=== PATIENT | female | born 1995 | race Caucasian/White ===

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

== ENCOUNTER 2017-06-09 20:14 | Emergency (ER) | END 2017-06-09 22:47 | disposition home or self-care (01) ==

== ENCOUNTER 2017-09-27 18:53 | Emergency (ER) | END 2017-09-27 20:47 | disposition home or self-care (01) ==

== ENCOUNTER 2017-10-18 19:38 | Emergency (ER) | END 2017-10-18 22:09 | disposition home or self-care (01) ==

== ENCOUNTER 2017-12-22 22:56 | Emergency (ER) | END 2017-12-23 03:09 | disposition home or self-care (01) ==

== ENCOUNTER 2018-02-11 08:21 | Emergency (ER) | END 2018-02-11 09:30 | disposition home or self-care (01) ==

== ENCOUNTER 2018-03-02 22:59 | Outpatient (CLI) | END 2018-03-03 02:00 | disposition home or self-care (01) ==

== ENCOUNTER 2018-04-04 10:51 | Outpatient (CLI) | END 2018-04-04 13:05 | disposition home or self-care (01) ==

== ENCOUNTER 2018-06-08 08:00 | Inpatient (IN) | payer OTHER ==
[~2018-06-08] VITALS: Ht 157.5 cm; Wt 90.2 kg
[~2018-06-08 08:00] MED LIST changes: -ONDA4TAB35 PO; +PREN-93 PO
[2018-06-08] MEDS ORDERED: LACTATED RINGER'S 1,000 ML IV PRN (11:10)
[2018-06-08 11:20] VITALS: BP 127/78; PULSE 122; RESP 18; Ht 157.5 cm; Wt 90.2 kg
[2018-06-08] MEDS ORDERED: OXYTOCIN 30 UNITS/LR 500 ML IV SCH ×2 (11:30)
[2018-06-08] MEDS ORDERED: CARBOPROST 250 MCG INJ IM PRN (11:30)
[2018-06-08] MEDS ORDERED: LIDOCAINE 1% (MPF) 30 ML INJ INJ PRN (11:30)
[2018-06-08] MEDS ORDERED: IBUPROFEN 600 MG TAB PO PRN (11:30)
[2018-06-08] MEDS ORDERED: METHYLERGONOVINE 0.2 MG INJ IM PRN (11:30)
[2018-06-08] MEDS ORDERED: OXYTOCIN 30 UNITS/LR 500 ML IV PRN (11:30)
[2018-06-08] MEDS ORDERED: MISOPROSTOL 200 MCG TAB PR PRN (11:30)
[2018-06-08] MEDS ORDERED: BUTORPHANOL 2 MG INJ IV PRN (11:30)
[2018-06-08] MEDS: LACTATED RINGER'S 1,000 ML IV SCH ×2 (11:39→18:09)
[2018-06-08] MEDS: MISOPROSTOL 50 MCG CAPSULE PO SCH ×2 (13:13→21:25)
[2018-06-09] MEDS: MISOPROSTOL 50 MCG CAPSULE PO SCH ×4 (01:59→15:04)
[2018-06-09] MEDS: LACTATED RINGER'S 1,000 ML IV SCH ×4 (02:01→20:24)
--- NOTE | 2018-06-09 12:41 | PREOPHP ---
DATE OF ADMISSION: 06/08/2018 HISTORY OF PRESENT ILLNESS: The patient is a 22-year-old 1, para 0, EDC 06/04/2018 intrauter ine at 40 weeks and 5 days gestational age, admitted yesterday for post EDC induction. She is currently on Cytotec for cervical ripening. She reports of occasional contractions and denies an y vaginal bleeding or discharge. Her care took place at [facility]. MEDICAL HISTORY: None. MEDICATIONS: vitamins. PAST SURGICAL HISTORY: None. OBSTETRIC HISTORY: Prima . GYNECOLOGIC HISTORY: 14, regular 3 to 4 days. She denies any sexually transmitted disease. Sexuall y active with 1 partner. SOCIAL HISTORY: She denies any smoking, drugs or alcohol. FAMILY HISTORY: None. REVIEW OF SYSTEMS: All within normal except history of present illness. PHYSICAL EXAMINATION: HEENT: Within normal. LUNGS: CTA bilateral. CARDIOVASCULAR: S1 sounds S1, S2, regular rhythm. ABDOMEN: Gravid, nontender. Negative CVA bilateral. EXTREMITIES: No calf tenderness. VAGINAL: On admission short and closed. heart tracing category 1. [place]: Irregular contracti ons. ASSESSMENT: Intrauterine at 40 weeks and 5 days gestational age, admitted for post-EDC ind uction, currently on Cytotec regimen for cervical ripening. PLAN: Continue cervical ripening regimen, follow by [facility]. Risks, benefits and alternatives expla ined. All questions were answered. Dictated By: ESA MARQUES MD ME/NTS Conf#: [id number] DID#: [id number] CC: ESA MARQUES MD;*EndCC*
--- NOTE | 2018-06-09 20:00 | PREAC ---
Date/Time of Note Date/Time of Note DATE: 06/09/18 TIME: 19:59 Anesthesia Eval and Record Evaluation Time Pre-Procedure Interview DATE: 06/09/18 TIME: 19:59 Age 23 Sex female NPO: 8 hrs Preoperative diagnosis labor pain Planned procedure epidural Past Medical History Past Medical History: Includes GI: Obesity : Gestational age: (40.5) Surgery & Anesthesia Issues No known issue Meds Anticoagulation: No Beta Susi within 24 hr: No Reason Beta Susi not given: Pt. not on B-Susi Active Scripts Vit No.124/Iron/FA ( Vitamin Tablet) 1 Each Tablet, 1 EACH PO DAILY for 30 Days, TAB Prov:TYLER DIAZ 12/23/17 Current Medications Lactated Ringer's 1,000 ml @ 125 mls/hr Q8H IV Last administered on 06/09/18at 18:09; Admin Dose 125 MLS/HR; Start 06/08/18 at 11:10 Butorphanol Tartrate (Stadol) 2 mg Q2H PRN IV .PAIN; Start 06/08/18 at 11:30 Lidocaine (Xylocaine 1% (Mpf)) 30 ml ONCE PRN INJ .EPISIOTOMY; Start 06/08/18 at 11:30 Oxytocin/Lactated Ringer's 500 ml @ 500 mls/hr ONCE POST IV ; Start 06/08/18 at 11:30 Oxytocin/Lactated Ringer's 500 ml @ 125 mls/hr POST IV ; Start 06/08/18 at 11:30 Ibuprofen (Motrin) 600 mg ONCE PRN PO .PAIN 1-5; Start 06/08/18 at 11:30 Lactated Ringer's 1,000 ml @ 2,000 mls/hr Q30M PRN IV .ANESTHESIA; Start 06/08/18 at 11:10 Oxytocin/Lactated Ringer's 500 ml @ 0 mls/hr ONCE PRN IV .VAGINAL BLEEDING; Start 06/08/18 at 11:30 Methylergonovine Maleate (Methergine) 0.2 mg ONCE PRN IM .VAGINAL BLEEDING; Start 06/08/18 at 11:30 Carboprost Tromethamine (Hemabate) 250 mcg ONCE PRN IM .VAGINAL BLEEDING; Start 06/08/18 at 11:30 Misoprostol (Cytotec) 1,000 mcg ONCE PRN IN .VAGINAL BLEEDING; Start 06/08/18 at 11:30 Misoprostol (Cytotec 50 Mcg Capsule) 50 mcg Q4 PO Last administered on 06/09/18at 15:04; Admin Dose 50 MCG; Start 06/08/18 at 13:00 Meds reviewed: Yes Allergies Coded Allergies: No Known Drug Allergy (Verified Allergy, Mild, 12/22/17) Allergies Reviewed: Yes Labs/Studies Labs Reviewed: Reviewed by anesthesiologist Result Diagram: 06/08/18 1120 test: Positive Studies: ECG (n/a), CXR (n/a) Pre-procedure Exam Last vitals Vital Signs Date Temp Pulse Resp B/P (MAP) Pulse Ox O2 O2 Flow FiO2 Time Delivery Rate 06/08/18 98.5 122 18 127/78 Room Air 11:20 (94) Airway: Adequate mouth opening Mallampati: Mallampati I Teeth: Normal Lung: Normal Heart: Normal ASA Physical Status ASA physical status: 2 Emergency: None Planned Anesthetic Neuraxial: Epidural Pre-operative Attestations Prior to commencing anesthesia and surgery, the patient was re-evaluated, there was verification of: *The patient's identity *The results of appropriate recent lab work and preoperative vital signs *The above evaluation not changing prior to induction *Anesthetic plan, risk benefits, alternative and complications discussed with patient/family; questions answered; patient/family understands, accepts and wishes to proceed. JOSELINE ARMENTA MD Jun 09, 2018 20:00
[2018-06-09] MEDS ORDERED: FENTAnyl 2MCG/ML-ROPIV 0.2% 100 ML ONE (20:14)
--- NOTE | 2018-06-09 20:22 | PAC ---
Date/Time of Note Date/Time of Note DATE: 06/09/18 TIME: 20:21 Post-Anesthesia Notes Post-Anesthesia Note Last documented vital signs Vital Signs Date Temp Pulse Resp B/P (MAP) Pulse Ox O2 O2 Flow FiO2 Time Delivery Rate 06/08/18 98.5 122 18 127/78 Room Air 11:20 (94) 06/09/182020 hr79 bp 116/64 rr 19 SAT 97% TEMP 98 Activity: WNL Respiratory function: WNL Cardiovascular function: WNL Mental status: Baseline Pain reasonably controlled: Yes Hydration appropriate: Yes Nausea/Vomiting absent: No JOSELINE ARMENTA MD Jun 09, 2018 20:22
[2018-06-09] MEDS ORDERED: ONDANSETRON 4 MG INJ IV PRN (20:30)
[2018-06-09] MEDS ORDERED: NALOXONE (0.4 MG/ML) INJ IV PRN (20:30)
[2018-06-09] MEDS: FENTAnyl 2MCG/ML-ROPIV 0.2% 100 ML BAG EPI SCH (21:52)
[2018-06-09] MEDS ORDERED: OXYTOCIN 30 UNITS/LR 500 ML IV SCH (22:00)
[2018-06-10] MEDS: FENTAnyl 2MCG/ML-ROPIV 0.2% 100 ML BAG EPI SCH (02:37)
[2018-06-10] MEDS: LACTATED RINGER'S 1,000 ML IV SCH (02:38)
[2018-06-10] MEDS ORDERED: OXYTOCIN 30 UNITS/LR 500 ML IV SCH (05:55)
--- NOTE | 2018-06-10 05:55 | LDN ---
Date/Time of Note Date/Time of Note DATE: 06/10/18 TIME: 05:54 Delivery Summary Weeks of Gestation 40 Placenta Delivered: Spontaneously Meconium: Light Episiotomy: Yes Laceration repair: rmle repair with 2-0 and 3-0 chromic Anesthesia type: Epidural Estimated blood loss: 200 Sponge & Needle done & correct: Yes All needle counts correct: Yes Any foreign bodies felt in the: No Infant Delivery Information Sex Sex: female Apgars 1 Minute: 8 5 Minute: 9 Suctioning Nose & mouth suctioned at vy: No Delee suction performed: Yes Umbilical Cord Umbilical cord with: 3 Vessels Cord presentations: no nuchal cord Cord Blood was obtained: Yes ESA MARQUES MD Jun 10, 2018 05:55
[2018-06-10] MEDS ORDERED: MAGNESIUM HYDROXIDE 30ML CUP PO PRN (06:00)
[2018-06-10] MEDS ORDERED: OXYTOCIN 30 UNITS/LR 500 ML IV PRN (06:00)
[2018-06-10] MEDS ORDERED: LANOLIN HPA 1 PKT TOP PRN (06:00)
[2018-06-10] MEDS ORDERED: METHYLERGONOVINE 0.2 MG INJ IM PRN (06:00)
[2018-06-10] MEDS ORDERED: MISOPROSTOL 200 MCG TAB PR PRN (06:00)
[2018-06-10] MEDS ORDERED: WITCH HAZEL/GLYCERIN PAD PR PRN (06:00)
[2018-06-10] MEDS ORDERED: BENZOCAINE 20% 56 ML SPRAY TOP PRN (06:00)
[2018-06-10] MEDS ORDERED: NACL 0.9% 3 ML SYG IV SCH (06:00)
[2018-06-10] MEDS ORDERED: CARBOPROST 250 MCG INJ IM PRN (06:00)
[2018-06-10] MEDS ORDERED: OXYCODONE/ASPIRIN (4.88/325) TAB PO PRN ×2 (06:00)
[2018-06-10] MEDS ORDERED: IBUPROFEN 600 MG TAB PO SCH (06:00)
[2018-06-10] MEDS ORDERED: ONDANSETRON 4 MG INJ IV PRN (06:00)
[2018-06-10 08:20] VITALS: BP 148/88; PULSE 84; RESP 18
[2018-06-10 09:20] VITALS: BP 125/84; PULSE 84; RESP 18
[2018-06-10] MEDS: SENNA/DOCUSATE NA (8.6MG/50MG) TAB PO SCH ×2 (09:43→21:14)
[2018-06-10 10:20] VITALS: BP 125/84; PULSE 87; RESP 18
[2018-06-10 16:34] VITALS: BP 118/63; PULSE 84; RESP 18
[2018-06-10] MEDS: IBUPROFEN 600 MG TAB PO SCH (18:12)
[2018-06-10 19:45] VITALS: PULSE 85; RESP 16
[2018-06-11] VITALS: BP 113/68; PULSE 86; RESP 16
[2018-06-11] MEDS: IBUPROFEN 600 MG TAB PO SCH ×5 (00:03→23:15)
[2018-06-11 04:30] VITALS: BP 116/67; PULSE 86; RESP 18
[2018-06-11 08:08] VITALS: BP 118/72; PULSE 86; RESP 18
[2018-06-11] MEDS: SENNA/DOCUSATE NA (8.6MG/50MG) TAB PO SCH ×2 (09:26→20:45)
--- NOTE | 2018-06-11 10:55 | PD.PPDC ---
DRAWING IN HAND Discharge Instruction Condition [id number] Patient Condition: [id number] Good Diet [id number] Diet: Tssxh3r Resume Regular Diet Activity/Restrictions [id number] Activity: Kajku0n Normal Activity May Shower [id number] Restrictions: Pjqju8v No Exercising No Lifting No Driving No Sexual Activity Nothing in the Vagina No [address] No Tampons, douche Follow-up Follow-up with Physician: 3, Week/Weeks Return to clinic for Mhsct5So [employer] Instructions: Ffzdu9y Fever greater than 101 Chills Worsening abdominal pain Excessive Vaginal Bleeding More than 2 pads per hour Unable to tolerate diet [id number] OB Instructions: Aeycj3y Breast Tenderness Depression Blurried Vision Headache Arzhn2Bc Surgical Instructions: Jciti7c Incisional Drainage Incisional Redness ESA MARQUES MD Jun 11, 2018 10:55
--- NOTE | 2018-06-11 10:56 | DS ---
Date/Time of Note Date/Time of Note DATE: 06/11/18 TIME: 10:56 Obstetrical Discharge Record Final Diagnosis Final Diagnosis: Term delivered Vaginal Delivery Obstetrical Delivery: Spontaneous, Laceration, Repaired Condition on Discharge Physical Assessment Last Vitals: stable afebrile Voiding: Yes Bowel Movement: Yes Breast: Soft, non-tender, Filling Fundus: Firm Abdomen and Incision: soft nt Calf Tenderness: No Patient Condition: Fair ESA MARQUES MD Jun 11, 2018 10:56
[2018-06-11 15:47] VITALS: BP 110/76; PULSE 86; RESP 18
[2018-06-11 20:00] VITALS: BP 110/68; PULSE 83; RESP 16
[2018-06-12 04:00] VITALS: BP 113/63; PULSE 98; RESP 18
[2018-06-12] MEDS: IBUPROFEN 600 MG TAB PO SCH ×2 (05:34→13:43)
[2018-06-12 08:30] VITALS: BP 118/71; PULSE 84; RESP 19
[2018-06-12] MEDS: SENNA/DOCUSATE NA (8.6MG/50MG) TAB PO SCH (09:25)
== END 2018-06-12 15:20 | disposition home or self-care (01) | DRG 807 ==
LOC: L-D 10:51 → PP1 06-10 08:15
PROVIDERS: ADMIT Obstetrics & Gynecology; ATTEND Obstetrics & Gynecology
PROC: 10E0XZZ Delivery of Products of Conception, External Approach (ICD-10-PCS; principal; 2018-06-10)
PROC: 0W8NXZZ Division of Female Perineum, External Approach (ICD-10-PCS; 2018-06-10)
DX: O77.0 Labor and delivery complicated by meconium in amniotic fluid (principal); O99.214 Obesity complicating childbirth; E66.9 Obesity, unspecified; Z37.0 Single live birth; Z3A.40 40 weeks gestation of pregnancy
CPT/HCPCS: 62319; 76815; 85025; 85610; 85730; 86592; 86850; 86900; 86901; 87340; 99464; J2210; J2590; J3010; J7120

== ENCOUNTER 2018-09-25 01:27 | Emergency (ER) | payer OTHER ==
[~2018-09-25] VITALS: Ht 157.5 cm; Wt 97.2 kg
[2018-09-25 01:29] VITALS: Ht 157.5 cm; Wt 97.2 kg
--- NOTE | 2018-09-25 01:43 | ERD ---
ER Documentation Chief Complaint Chief Complaint ABD PAIN WITH NAUSEA AND DIARRHEA; NO EPISODES OF VOMITING X4HRS HPI This is a 23-year-old female who presents here in the emergency department with complaints of right lower abdominal pain that woke her up. Stated that she feels nauseated but no vomiting. Had one episode of watery stools today. Complains of difficulty walking due to right lower abdominal pain. stated that he is concerned that she might have appendicitis because he has similar symptoms, and has diarrhea too but ended up having appendicitis. LMP: Stated that he was Friday. G1, . Denies headache, head injury, loss of consciousness, dizziness, neck pain, neck stiffness, throat pain, difficulty swallowing, difficulty breathing lying flat, shoulder pain, chest pain, back pain, nausea, vomiting, constipation, urinary symptoms, or possibility being , loss of bowel and bladder control, trauma, injury, falls, difficulty walking due to pain, numbness or tingling sensation, calf pain, recent travel, recent major surgery in the last 3 weeks, calf pain, recent long travel, recent exposure to any illness, recent antibiotic use in the last 3 months, fever, chills, seizures. Past medical history: Surgical history: Social: Denies smoking, use of alcoholic beverages, use of illegal drugs. ROS All systems reviewed and are negative except as per history of present illness. Medications Home Meds Active Scripts Ondansetron Hcl* (Zofran*) 4 Mg Tablet, 4 MG PO Q8H PRN for NAUSEA AND/OR VOMITING, #30 TAB Prov:TYLER DIAZ F 09/25/18 Ibuprofen* (Motrin*) 800 Mg Tab, 800 MG PO Q6H PRN for PAIN AND OR ELEVATED TEMP, #30 TAB Prov:OBDULIOILABANTYLER F 09/25/18 Vit No.124/Iron/FA ( Vitamin Tablet) 1 Each Tablet, 1 EACH PO DAILY for 30 Days, TAB Prov:JOETYLER F 12/23/17 Allergies Allergies: Coded Allergies: No Known Drug Allergy (Verified Allergy, Mild, 12/22/17) PMhx/Soc History of Surgery: Yes (RIGHT EAR SX) Anesthesia Reaction: No Hx Neurological Disorder: No Hx Respiratory Disorders: No Hx Cardiac Disorders: No Hx Psychiatric Problems: No Hx Miscellaneous Medical Probl: No Hx Alcohol Use: No Hx Substance Use: No Hx Tobacco Use: No Smoking Status: Never smoker Physical Exam Vitals Vital Signs Date Temp Pulse Resp B/P (MAP) Pulse Ox O2 O2 Flow FiO2 Time Delivery Rate 09/25/18 97.3 87 18 128/70 99 Room Air 04:00 (89) 09/25/18 97.2 99 18 136/65 96 01:29 (88) Physical Exam Const: No acute distress Head: Atraumatic Eyes: Normal Conjunctiva ENT: Normal External Ears, Nose and Mouth. Neck: Full range of motion. No meningismus. Resp: Clear to auscultation bilaterally Cardio: Regular rate and rhythm, no murmurs Abd: Soft, non tender, non distended. Normal bowel sounds. Has right lower abdominal tenderness to light and deep palpation. Positive psoas sign. Positive Rovsing sign. Jump twice and developed right sided lower abdominal pain. Negative Nobles sign. No CVA tenderness. Skin: No petechiae or rashes. Color appears normal for ethnicity. No skin tenting. No signs of severe dehydration. Back: No midline or flank tenderness Ext: No cyanosis, or edema Neur: Awake and alert. No neurological deficits. Psych: Normal Mood and Affect Result Diagram: 09/25/18 0205 09/25/18 0205 Results 24 hrs Laboratory Tests Test 09/25/18 02:05 09/25/18 02:07 White Blood Count 11.2 10^3/ul Red Blood Count 4.70 10^6/ul Hemoglobin 14.1 g/dl Hematocrit 42.0 % Mean Corpuscular Volume 89.4 fl Mean Corpuscular Hemoglobin 30.0 pg Mean Corpuscular Hemoglobin Concent 33.6 g/dl Red Cell Distribution Width 11.9 % Platelet Count 249 10^3/UL Mean Platelet Volume 9.6 fl Immature Granulocytes % 0.300 % Neutrophils % 72.8 % Lymphocytes % 20.4 % Monocytes % 5.5 % Eosinophils % 0.8 % Basophils % 0.2 % Nucleated Red Blood Cells % 0.0 /100WBC Immature Granulocytes # 0.030 10^3/ul Neutrophils # 8.2 10^3/ul Lymphocytes # 2.3 10^3/ul Monocytes # 0.6 10^3/ul Eosinophils # 0.1 10^3/ul Basophils # 0.0 10^3/ul Nucleated Red Blood Cells # 0.0 10^3/ul Urine Color YELLOW Urine Clarity CLEAR Urine pH 5.0 Urine Specific [place] 1.026 Urine Ketones NEGATIVE mg/dL Urine Nitrite NEGATIVE mg/dL Urine Bilirubin NEGATIVE mg/dL Urine Urobilinogen 1+ mg/dL Urine Leukocyte Esterase NEGATIVE Mahsa/ul Urine Microscopic RBC 1 /HPF Urine Microscopic WBC 1 /HPF Urine Squamous Epithelial Cells FEW /HPF Urine Mucus FEW /HPF Urine Hemoglobin 1+ mg/dL Urine Glucose NEGATIVE mg/dL Urine Total Protein NEGATIVE mg/dl Sodium Level 147 mmol/L Potassium Level 3.8 mmol/L Chloride Level 107 mmol/L Carbon Dioxide Level 29 mmol/L Anion Gap 11 Blood Urea Nitrogen 15 mg/dl Creatinine 0.56 mg/dl Est Glomerular Filtrat Rate mL/min > 60 mL/min Glucose Level 100 mg/dl Calcium Level 9.7 mg/dl Total Bilirubin 0.4 mg/dl Direct Bilirubin 0.00 mg/dl Indirect Bilirubin 0.4 mg/dl Aspartate Amino Transf (AST/SGOT) 22 IU/L Alanine Aminotransferase (ALT/SGPT) 30 IU/L Alkaline Phosphatase 114 IU/L Total Protein 8.3 g/dl Albumin 4.6 g/dl Globulin 3.70 g/dl Albumin/Globulin Ratio 1.24 Amylase Level 96 U/L Lipase 64 U/L POC Beta HCG, Qualitative NEGATIVE Current Medications Medications Dose Sig/Becca Start Time Status Last (Trade) Ordered Route PRN Stop Time Admin Dose Reason Admin Sodium 1,000 ml @ Q1H ONCE 09/25/18 DC 09/25/18 Chloride 1,000 mls/hr IV 02:30 02:11 09/25/18 03:29 Ondansetron 4 mg ONCE STAT 09/25/18 DC 09/25/18 HCl (Zofran IV 02:07 02:15 Inj) 09/25/18 02:08 Morphine 4 mg ONCE STAT 09/25/18 DC 09/25/18 Sulfate IV 02:07 02:15 (morphine) 09/25/18 02:08 IV Flush 10 ml STK-MED 09/25/18 DC 09/25/18 (NS 10 ml) ONCE .ROUTE 02:53 03:09 09/25/18 02:54 Sodium 100 ml @ ud STK-MED 09/25/18 DC 09/25/18 Chloride ONCE .ROUTE 02:53 03:09 09/25/18 02:54 Iohexol 150 ml STK-MED 09/25/18 DC 09/25/18 (Omnipaque ONCE .ROUTE 02:53 03:09 300mg/ ml) 09/25/18 02:54 Procedures/MDM Diagnostic tests: POC urine : Negative. Urinalysis: Reviewed. Culture urine: Sent. Blood works: White count is mildly elevated at 11.2. CT of the abdomen and pelvis with IV contrast: Minimal intrahepatic biliary duct dilatation. Normal appendix identified. Otherwise no acute abnormality identified within the abdomen and pelvis. Treatment: Saline lock. Normal saline IV bolus. Morphine IV. Zofran IV. Re-evaluation: No episode of emesis here in the emergency department. Denies chest pain, abdominal pain. Negative Nobles sign. Negative Sera sign (heel jar test). Negative psoas sign. Negative Rovsing sign. No CVA tenderness. Able to jump 5 times without developing lower abdominal pain. Stated that she feels much better at this time and that they are ready to go home. stated that they are comfortable going home. Differential diagnosis I have low suspicion for sepsis, pancreatitis, cholecystitis, diverticulitis, diverticulitis with abscess, appendicitis, ruptured appendicitis, appendicitis with abscess, pyelonephritis, nephrolithiasis, obstructing kidney stones, septic stone, bowel obstruction. Final diagnosis: Abdominal pain. Prescription: Motrin. Zofran. Follow-up with PCP in the next 24-48 hours. Come back here in the emergency department for any new symptoms or any worsening symptoms. All questions and concerns were answered. Patient and family members verbalized understanding and agreed with plan of care. Hemodynamically stable on discharge. Departure Diagnosis: Primary Impression: Abdominal pain Condition: Stable Additional Instructions: Follow-up with PCP in the next 24-48 hours. Come back here in the emergency department for any new symptoms or any worsening symptoms. TYLER DIAZ Sep 25, 2018 01:43
[2018-09-25] MEDS ORDERED: morphine 4 MG/ML VIAL IV STA (02:07)
[2018-09-25] MEDS ORDERED: ONDANSETRON 4 MG INJ IV STA (02:07)
[2018-09-25] MEDS ORDERED: SOD CHLORIDE 0.9% 1,000 ML IV ONE (02:30)
[2018-09-25] MEDS ORDERED: IOHEXOL 300MG/ML 150 ML BTL ONE (02:53)
[2018-09-25] MEDS ORDERED: SOD CHLORIDE 0.9% 100 ML ONE (02:53)
[2018-09-25] MEDS ORDERED: IBUP800T48 PO (03:45)
[2018-09-25] MEDS ORDERED: ONDA4TAB8 PO (03:46)
[2018-09-25 04:00] VITALS: BP 128/70; PULSE 87; RESP 18
== END 2018-09-25 04:00 | disposition home or self-care (01) ==
LOC: FTE 01:27
DX: R10.31 Right lower quadrant pain (principal); R11.0 Nausea
CPT/HCPCS: 74177; 80053; 81001; 81025; 82150; 83690; 85025; 87086; 96361; 96374; 96375; J2270; J2405; J7030; Q9967; Z7502; Z7610